=== PATIENT | male | born 1965 | race Two or more races ===

== ENCOUNTER 2016-04-09 13:44 | Emergency (ER) | payer OTHER ==
[2016-04-09] MEDS ORDERED: ONDANSETRON 4 MG ODT TAB ONE (14:33)
[2016-04-09] MEDS ORDERED: OXYCODONE/ACETAMINOPHEN 5/325 MG TABLET ONE (14:33)
--- NOTE | 2016-04-09 15:05 | CT ---
Exam: CT head without contrast COMPARISON: None INDICATION: 12 foot fall from ladder. TECHNIQUE: CT examination of the head was obtained without contrast. FINDINGS: There is no acute intracranial hemorrhage. There is no abnormal intra or extra-axial fluid collection. There is no edema, mass effect or midline shift. Ventricles are normal in size. There is no depressed skull fracture. The visualized paranasal sinuses and mastoid air cells are all aerated. IMPRESSION: No acute intracranial abnormality. CT cervical spine, abdomen and pelvis to follow. Report was uploaded to the EMR at 1502 hours 04/09/2016.
--- NOTE | 2016-04-09 15:11 | CT ---
Exam: CT cervical spine without contrast. COMPARISON: None INDICATION: 12 foot fall from ladder. TECHNIQUE: CT examination of the cervical spine was obtained without contrast. FINDINGS: There is straightening of the normal cervical lordosis. Atlantoaxial and atlantooccipital relationships are maintained. There is no prevertebral soft tissue swelling. No acute fracture is identified. Minor irregularity is noted within the posterior spinous process of C7, chronic. Mild degenerative disc disease is noted at C5-6 and C6-7. 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 The paravertebral soft tissues are within normal limits. Limited evaluation of the lung apices demonstrates no pneumothorax. IMPRESSION: No acute osseous abnormality in the cervical spine. CT abdomen and pelvis to follow. Report was uploaded to the EMR at 1508 hours 04/09/2016.
--- NOTE | 2016-04-09 15:21 | CT ---
Exam: CT abdomen and pelvis without contrast COMPARISON: None INDICATION: 12 foot fall off ladder. TECHNIQUE: CT examination of the abdomen and pelvis was obtained without contrast. FINDINGS: Sagittal alignment of the spine is maintained. There is no vertebral body compression fracture. There is mild degenerative disc disease within the lumbar spine, most prominent at L1-2 and L2-3. Hypertrophic changes are seen about the posterior elements of L3, where there are pars defects. 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 No acute displaced pelvic fracture is identified. There is no intra-abdominal hematoma, free air or free fluid. The liver, spleen, pancreas and both kidneys are unremarkable on this noncontrast exam. Gallbladder is present. Adrenal glands unremarkable. Aside from some mild colonic diverticulosis, the colon is otherwise unremarkable and there is no focal bowel wall thickening. Urinary bladder within normal limits. There are tiny fat-containing bilateral hernias, left greater than right. Lung bases are clear. IMPRESSION: No acute findings in the abdomen or pelvis. Report called to the ED at 1515 hours 04/09/2016.
--- NOTE | 2016-04-09 16:16 | RAD ---
Exam: Two-view right lower leg COMPARISON: None INDICATION: 12 foot fall off ladder, right lower leg pain. FINDINGS: AP and lateral views of the right tibia and fibula were obtained. No apparent soft tissue swelling. Old healed fracture deformity is seen involving the distal third tibial diaphysis. No acute displaced fracture is identified. Limited evaluation of the knee and ankle demonstrates normal alignment. Mild osteophyte formation is noted in the knee. Small enthesophyte is noted at the Achilles insertion. IMPRESSION: No acute osseous abnormality in the right lower leg.
--- NOTE | 2016-04-09 16:17 | RAD ---
Exam: Two-view left lower leg COMPARISON: None INDICATION: Follow-up 12 foot ladder, left leg pain. FINDINGS: AP and lateral views of the left tibia and fibula were obtained. Long intramedullary morgan with 2 proximal and 2 distal interlocking screws are identified within the tibia. Old fracture deformity is seen within the distal third tibial diaphysis. Old healed fracture deformity is also seen within the distal third left fibular diaphysis. No acute fracture is identified. Limited evaluation of the ankle and knee demonstrate normal alignment. IMPRESSION: No acute osseous abnormality within the left lower leg. Posttraumatic and postsurgical changes as above.
== END 2016-04-09 16:48 | disposition home or self-care (01) ==
LOC: ED 13:44
DX: S30.0XXA Contusion of lower back and pelvis, initial encounter (principal); S80.819A Abrasion, unspecified lower leg, initial encounter; W11.XXXA Fall on and from ladder, initial encounter; Y99.0 Civilian activity done for income or pay
CPT/HCPCS: 73590 ×2; 74176; 72125; 70450; 99284 ×2; A9270 ×2